=== PATIENT | male | born 1995 | race Hispanic/Latino ===

== ENCOUNTER 2021-05-12 14:40 | Outpatient (CLI) | payer BC | END 2021-05-12 14:41 | disposition home or self-care (01) | LOC: RAD 14:40 | PROVIDERS: ATTEND Family Medicine | DX: R05.9 Cough, unspecified (principal); J01.40 Acute pansinusitis, unspecified; J45.41 Moderate persistent asthma with (acute) exacerbation | CPT/HCPCS: 70220; 71045 ==